=== PATIENT | female | born 1995 | race Caucasian/White ===

== ENCOUNTER 2016-07-14 11:52 | Inpatient (IN) | payer OTHER ==
[2016-07-14] MEDS ORDERED: ONDANSETRON HCL/PF 2 MG/ML VIAL IV PRN ×2 (12:06→20:31)
[2016-07-14] MEDS ORDERED: RINGERS SOLUTION,LACTATED 1,000 ML IV ONE (12:06)
[2016-07-14] MEDS ORDERED: RINGERS SOLUTION,LACTATED 1,000 ML IV PRN (12:06)
[2016-07-14] MEDS ORDERED: OXYTOCIN/DEXTROSE 5%-WATER 500 UNITS/8,333.33 ML BAG IV ONE (12:06)
[2016-07-14] MEDS ORDERED: DEXTROSE 5%-LACTATED RINGERS 1,000 ML IV PRN (12:06)
[2016-07-14] MEDS ORDERED: LIDOCAINE HCL 50 ML VIAL PERI PRN (12:06)
[2016-07-14 12:29] LABS: Hematocrit 36.9 % (37.0-47.0); Hemoglobin 12.3 gm/dL (12.5-16.0); Mean Cell Volume 86.8 fl (78-100); Mean Corpuscular Hemoglobin 28.9 pg (27-31); Mean Corpuscular Hgb Conc 33.3 g/dl (32-36); Mean Platelet Volume 12.2 fl (6.0-9.5); Neutrophil # 9.6 K/mm3 (1.3-6.0); Neutrophil % 79.9 % (42-75.0); Platelet Count 178 K/mm3 (150-450); Red Blood Count 4.25 M/mm3 (4.2-5.4); White Blood Count 12.1 K/mm3 (4.0-10.5)
[2016-07-14 12:51] LABS: Albumin * 2.7 gm/dl (3.4-5.0); Anion Gap 15.1 mmol/L (6.8-13.8); BUN/Creatinine Ratio 12.1 (9.0-21.6); Bilirubin, Total 0.2 mg/dL (0.0-1.1); Ca. Corrected For Albumin 9.3 mg/dL (8.4-10.2); Calcium * 8.6 mg/dL (7.9-10.9); Potassium 4.1 mmol/L (3.4-4.6); Total Protein 6.6 gm/dL (6.2-8.2); Uric Acid 4.7 mg/dL (2.6-7.2)
[2016-07-14] MEDS ORDERED: BUPIVACAINE HCL/0.9 % NACL/PF 250 ML EP PRN (15:27)
[2016-07-14] MEDS ORDERED: fentaNYL CITRATE/PF 50 MCG/ML AMPUL IT SCH (15:30)
--- NOTE | 2016-07-14 15:30 | OR ---
Anesthesia Pre Procedure Eval Date of Service: 07/14/16 Pre Procedure Evaluation: Last Vital Signs Temp 36.9 C 12/07/15 17:54 Pulse Resp BP 113/55 12/07/15 17:54 Pulse Ox Anesthesia Pre Procedure Evaluation DATE: 07/14/2016 TIME: 1530 INDICATIONS: Active labor, labor pain PAST MEDICAL HISTORY: Primipara patient in active labor requesting labor analgesia EXAM: Heart regular; lungs clear ASSESSMENT OF MEDICAL STATUS: Appropriate candidate for labor analgesia PLANNED PROCEDURE: Comminution and spinal epidural for labor analgesia Home Medications: HOME MEDICATIONS Vit No.129/Iron/FA [ One Daily Tablet] 1 each PO DAILY #30 tablet 12/07/15 [Last Taken Unknown] Acetaminophen [Tylenol] 500 mg PO PRN PRN 07/14/16 [Last Taken Unknown]
--- NOTE | 2016-07-14 15:56 | OR ---
Anesthesia Procedure Note - Anesthesia Procedure Note Date of Service: 07/14/16 Narrative: Vital Signs - Last Taken Temp 36.9 C 12/07/15 17:54 Pulse Resp BP 113/55 12/07/15 17:54 Pulse Ox 07/14/16 15:54 ANESTHESIA PROCEDURE NOTE Date of Procedure: 07/14/2016 Time of procedure: 1530. Performed by: HECTOR Hurt CRNA, MSN Financial Underwriter: Sivan Monaco RN. Preprocedure diagnosis: Active labor, labor pain. Post procedure diagnosis: Same. Procedure: Labor Epidural Placement L3 4. Indications: Labor pain. Findings: See below. Details of the procedure: The patient was placed on the side of the bed in sitting position. The patient was prepped with DuraPrep and draped in a sterile fashion. Lidocaine 1% was infiltrated to the skin and subcutaneous tissues at the level of the L3 4 interspace. The epidural space was identified using a 18-gauge Tuohy needle with [id number] technique. Fentanyl 20 g was given intrathecally the intrathecal needle was then removed and the epidural catheter was threaded approximately 4 cm, the epidural needle was then removed, and after careful aspiration 3 mL of 1.5% lidocaine with 1-200,000 epinephrine was injected without change in maternal heart rate or sensorium. The catheter was then taped in place. EBL: Minimal. Fluids: N/A. Specimen: N/A. Post procedure condition: The patient tolerated the procedure well with good relief. No complications were noted. Thank you for this consultation. Pasquale Gillespie CRNA, RN CARDIOLOGY, MSN
[2016-07-14] MEDS ORDERED: GLYCERIN/WITCH HAZEL LEAF 40 APPL BOX TP PRN (20:59)
[2016-07-14] MEDS ORDERED: SENNOSIDES 8.6 MG TABLET PO PRN (20:59)
[2016-07-14] MEDS ORDERED: oxyCODONE HCL/ACETAMINOPHEN 1 TAB TABLET PO PRN (20:59)
[2016-07-14] MEDS ORDERED: BENZOCAINE/MENTHOL 81 SPRAY CAN TP PRN (20:59)
[2016-07-14] MEDS ORDERED: BISACODYL 10 MG SUPP.RECT RC PRN (20:59)
[2016-07-14] MEDS ORDERED: OXYTOCIN/DEXTROSE 5%-WATER 30 UNITS/500 ML BAG IV ONE (20:59)
--- NOTE | 2016-07-14 21:03 | OR ---
Operative Report - Dictated Report Narrative: Spontaneous Vaginal Delivery Viable male with APGARS of 8 at 1 minute and 9 at 5 minutes. He delivered at 2036. Presentation was DOUGLAS. A loose nuchal cord was noted after delivery of his head that was reduced prior to delivery of the shoulders. The left anterior shoulder delivered easily with gentle downward traction followed by the posterior shoulder and the remainder of the baby. The baby placed on the maternal abdomen. He was dried and stimulated. Weight: 6 pounds 12.2 ounces or 3070 g Placenta was delivered spontaneously and intact. Abrasions were noted on the bilateral external labia minora. And first degree laceration noted on the right periurethral area that was hemostatic. Estimated blood loss: 100 ml Mother and baby tolerated delivery well. History for Definition: * The number of deliveries resulting in a live the patient experienced prior to current hospitalization * The previous delivery of live twins or any live multiple gestation is considered one live event. *If primagravida or nulliparous is documented select zero for the number of previous live births. Live Events: 0
[2016-07-14] MEDS: DOCUSATE SODIUM 100 MG CAPSULE PO SCH (22:38)
[2016-07-14] MEDS: IBUPROFEN 800 MG TABLET PO PRN (22:38)
[2016-07-15] MEDS: DOCUSATE SODIUM 100 MG CAPSULE PO SCH ×2 (09:33→20:27)
[2016-07-15] MEDS: IBUPROFEN 800 MG TABLET PO PRN ×2 (09:33→20:27)
--- NOTE | 2016-07-15 09:34 | PN ---
Progess Note - Interim Narrative: 07/15/16 09:32 progress note Subjective: The patient is doing well. She is ambulating, voiding, tolerating by mouth. She has minimal pain and moderate lochia. Denies headache, blurry vision, epigastric pain, edema. Objective: General: No acute distress Abdomen: Soft, nontender, fundus is firm just below the umbilicus Extremities: minimal edema, nontender to palpation Assessment and plan: day 1 Feeding: Breast Pain: Controlled with by mouth medication Gestational hypertension: Blood pressures are mostly within normal limits, continue to monitor Routine care.
[2016-07-16] MEDS: DOCUSATE SODIUM 100 MG CAPSULE PO SCH (10:00)
[2016-07-16] MEDS: oxyCODONE HCL/ACETAMINOPHEN 1 TAB TABLET PO PRN ×2 (10:00→14:18)
[2016-07-16] MEDS: IBUPROFEN 800 MG TABLET PO PRN (10:02)
--- NOTE | 2016-07-16 11:25 | PN ---
Progess Note - Interim Narrative: 07/16/16 11:24 progress note Subjective: The patient is doing well. She is ambulating, voiding, tolerating by mouth. She has minimal pain and moderate lochia. Objective: General: No acute distress Abdomen: Soft, nontender, fundus is firm just below the umbilicus Extremities: minimal edema, nontender to palpation Assessment and plan: day 2 Feeding: Breast Pain: Controlled with by mouth medication control: Depo-Provera Routine care.
[2016-07-16 16:43] VITALS: BP 141/67
== END 2016-07-16 16:30 | disposition home or self-care (01) | DRG 775 ==
LOC: OB 11:52
PROVIDERS: ADMIT Obstetrics & Gynecology Gynecologic Oncology; ATTEND Obstetrics & Gynecology Gynecologic Oncology
PROC: 10E0XZZ Delivery of Products of Conception, External Approach (ICD-10-PCS; principal; 2016-07-14)
PROC: 3E033VJ Introduction of Other Hormone into Peripheral Vein, Percutaneous Approach (ICD-10-PCS; 2016-07-14)
PROC: 4A1HXCZ Monitoring of Products of Conception, Cardiac Rate, External Approach (ICD-10-PCS; 2016-07-14)
PROC: 3E0S3CZ (ICD-10-PCS; 2016-07-14)
DX: O13.4 Gestational [pregnancy-induced] hypertension without significant proteinuria, complicating childbirth (principal); O69.81X0 Labor and delivery complicated by cord around neck, without compression, not applicable or unspecified; O70.0 First degree perineal laceration during delivery; Z3A.39 39 weeks gestation of pregnancy; Z37.0 Single live birth

== ENCOUNTER 2018-11-18 10:51 | Inpatient (IN) ==
[2018-11-18] MEDS ORDERED: DEXTROSE 5%-LACTATED RINGERS 1,000 ML IV PRN (10:57)
[2018-11-18] MEDS ORDERED: OXYTOCIN/DEXTROSE 5%-WATER 30 UNITS/500 ML BAG IV ONE ×2 (10:57→17:34)
[2018-11-18] MEDS ORDERED: RINGER'S SOLUTION,LACTATED 1,000 ML IV ONE (10:57)
[2018-11-18] MEDS ORDERED: ONDANSETRON 4 MG TAB.RAPDIS PO PRN (10:57)
[2018-11-18 11:47] LABS: Hematocrit 31.8 % (37.0-47.0); Hemoglobin 9.9 gm/dL (12.5-16.0); Mean Cell Volume 78.5 fl (78-100); Mean Corpuscular Hemoglobin 24.4 pg (27-31); Mean Corpuscular Hgb Conc 31.1 g/dl (32-36); Mean Platelet Volume 11.1 fl (8-12.5); Neutrophil # 10.5 K/mm3 (1.3-6.0); Neutrophil % 77.9 % (42-75.0); Platelet Count 215 K/mm3 (150-450); Red Blood Count 4.05 M/mm3 (4.2-5.4); Red Cell Distribution Width 14.6 % (11.5-14.0); White Blood Count 13.5 K/mm3 (4.0-10.5)
[2018-11-18 12:15] LABS: Albumin * 2.8 gm/dl (3.4-5.0); Anion Gap 13.5 mmol/L (6.8-13.8); BUN/Creatinine Ratio 8.5 (9.0-21.6); Bilirubin, Total 0.3 mg/dL (0.0-1.1); Ca. Corrected For Albumin 9.3 mg/dL (8.4-10.2); Calcium * 8.7 mg/dL (7.9-10.9); Carbon Dioxide 22.3 mmol/L (24-32.6); Potassium 3.8 mmol/L (3.4-4.6); Total Protein 6.3 gm/dL (6.2-8.2)
[2018-11-18] MEDS ORDERED: ONDANSETRON HCL/PF 2 MG/ML VIAL IV PRN (13:20)
[2018-11-18] MEDS ORDERED: BUPIVACAINE HCL/0.9 % NACL/PF 250 ML EP PRN (13:20)
[2018-11-18] MEDS ORDERED: NALOXONE HCL 1 MG/1 ML SYRG IV PRN (13:20)
[2018-11-18] MEDS ORDERED: fentaNYL CITRATE/PF 50 MCG/ML AMPUL IT SCH (13:30)
--- NOTE | 2018-11-18 14:11 | ANES ---
Anesthesia Pre Procedure Eval Vitals/Labs: Last Vital Signs Temp 36.8 C 11/18/18 11:13 Pulse 98 11/18/18 11:13 Resp 16 11/18/18 11:13 BP 123/77 11/18/18 11:13 Pulse Ox 99 11/18/18 11:13 HOME MEDICATIONS NK 11/18/18 [Last Taken Unknown] Allergies/Adverse Reactions: Allergies Allergy/AdvReac Type Severity Reaction Status Date / Time No Known Allergies Allergy Verified 11/18/18 11:05 - Planned Procedure Planned Procedure: INDUCTION FOR PREECALAMPSIA Medication List Reviewed:: Yes Allergies Verified: Yes Medical History (Updated 11/15/18 @ 17:03 by John Pelayo DO) ASCUS with positive high risk HPV (Acute) 2015, no pap in 2016. 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 Wrist fracture Onset Date: 2002 Left Surgical History (Updated 08/26/18 @ 15:06 by Marcela Lopez MD) H/O removal of cyst Onset Date: Unknown Right rodarte History of tonsillectomy and adenoidectomy Onset Date: 1998 Hx of dilation and curettage Onset Date: 04/2015 Removal of Hydatidiform mole Family History (Updated 04/23/18 @ 10:24 by Marilia Pérez RN) Mother Hypertension Depression Father Depression Hypertension Diabetes Hyperlipemia GERD (gastroesophageal reflux disease) Back problem Grandfather Hypertension Diabetes Myocardial infarction Hyperlipemia CVA (cerebral vascular accident) Maternal Cancer Lymphoma Grandfather Heart disease Paternal Grandmother Coronary artery disease Maternal Grandmother Diabetes Paternal - Family Anesthesia History Family History:: no untoward family reactions to anesthesia - Airway/Neck/Teeth Within Normal Limits:: Yes Denture Type: None Neck Exam: full range of motion Thyromental (T-M) distance: > 6 cm Mandibulo Hyoid distance: > 3 cm - Respiratory Smoking Status: Never smoker Sleep Apnea currently treated: No Sleep Apnea by current assessment: No - Cardiovascular Tolerate Activity: Good - Anesthesia Assessment and Plan ASA Class: PS, II, E Anesthesia Type Plan: Epidural Planned difficult intubation/equipment available: No
--- NOTE | 2018-11-18 14:12 | ANES ---
Post Anesthesia Assessment - Vital Signs Vitals: Last Vital Signs Temp 36.8 C 11/18/18 11:13 Pulse 98 11/18/18 11:13 Resp 16 11/18/18 11:13 BP 123/77 11/18/18 11:13 Pulse Ox 99 11/18/18 11:13 Airway Patency: Normal - Mental Status Level Of Consciousness: Awake - Pain Level Pain Score: 2 - N/V Assessment Nausea/Vomiting Presence: None Dehydration:: No
--- NOTE | 2018-11-18 14:12 | ANES ---
Post Anesthesia Discharge - Transfer of Care Transfer of Care handoff given to nurse: Yes - Anesthesia Post Op Note Anesthesia Post Op Note: Care transferred to OB RN
--- NOTE | 2018-11-18 14:14 | ANES ---
Anesthesia Procedure Note Procedure Note: ANESTHESIA PROCEDURE NOTE Date of Procedure: 11/18/2018 Time of procedure: 1330. Performed by: Abiodun Vu CRNA Customer Care Voice Consultant: None. Preprocedure diagnosis: Active labor. Post procedure diagnosis: Same. Procedure: Insertion of labor epidural. Indications: The patient is a 23-year-old multigravida female in active labor requesting labor epidural for pain management. Findings: See below. Details of the procedure: The patient was placed in a sitting position. Back was prepped with DuraPrep. Patient was then draped in a sterile fashion. Lidocaine 1% was infiltrated to the skin and subcutaneous tissues at the level of the L3 4 interspace. The epidural space was identified using a 18-gauge Tuohy needle with [id number] technique. 20 mcg fentanyl was given intrathecally using a 27 ga. spinal needle. Epidural catheter was inserted without difficulty. Negative test dose was elicited using 3 mL of 2% preservative-free lidocaine plus epinephrine 1 200,000. The epidural catheter was then taped and secured in place. EBL: Minimal. Fluids: N/A. Specimen: N/A. Post procedure condition: The patient tolerated the procedure well. No complications were noted. Thank you for this consultation. Blair CRNA
[2018-11-18 14:32] LABS: Cocaine Ur Negative (NEGATIVE); Urine Barbiturate Negative (NEGATIVE); Urine Benzodiazepines Negative (NEGATIVE); Urine Opiates Negative (NEGATIVE); Urine PCP Negative (NEGATIVE); Urine THC Negative (NEGATIVE)
--- NOTE | 2018-11-18 16:36 | HP ---
Chief Complaint - Chief Complaint Date of Service: 11/18/18 Time of Service: 16:25 Chief Complaint: preeclampsia History of Present Illness: 23 yo at 38 3/7 wks presents to L&D for induction of labor due to mild preeclampsia. BPs in office 120-150s/90's on last week and today. Patient denies headache, visual changes, epigastric pain, or excess edema. This complicated by anemia, mild preeclampsia, h/o GHTN, h/o molar . Rh negative Rubellla immune GBS negative Medical History (Updated 11/15/18 @ 17:03 by John Pelayo DO) ASCUS with positive high risk HPV (Acute) 2015, no pap in 2016. 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 Wrist fracture Onset Date: 2002 Left Surgical History: Surgical History (Updated 08/26/18 @ 15:06 by Marcela Lopez MD) H/O removal of cyst Onset Date: Unknown Right rodarte History of tonsillectomy and adenoidectomy Onset Date: 1998 Hx of dilation and curettage Onset Date: 04/2015 Removal of Hydatidiform mole Family History: Family History (Updated 04/23/18 @ 10:24 by Marilia Pérez RN) Mother Hypertension Depression Father Depression Hypertension Diabetes Hyperlipemia GERD (gastroesophageal reflux disease) Back problem Grandfather Hypertension Diabetes Myocardial infarction Hyperlipemia CVA (cerebral vascular accident) Maternal Cancer Lymphoma Grandfather Heart disease Paternal Grandmother Coronary artery disease Maternal Grandmother Diabetes Paternal Social History: Preferred Language Hungarian Smoking Status Never smoker Psych History No pertinent hx (Last Updated 11/06/18 @ 11:06 by DAVID Yoder) No Social History Section defined Review Of Systems (GEN) - Review of Systems Generalized/Overall Review: Present: No Symptoms Reported EENTM: Present: No Symptoms Reported Respiratory: Present: No Symptoms Reported Cardiac: Present: No Symptoms Reported Abdominal: Present: No Symptoms Reported Genitourinary: Present: No Symptoms Reported Musculoskeletal: Present: No Symptoms Reported Neurological: Present: No Symptoms Reported Skin: Present: No Symptoms Reported Endocrine: Present: No Symptoms Reported Immunizations: IMMUNIZATION HX History of Influenza Vaccine Yes Allergies/Adverse Reactions: Allergies Allergy/AdvReac Type Severity Reaction Status Date / Time No Known Allergies Allergy Verified 11/18/18 11:05 Home Medications: HOME MEDICATIONS NK 11/18/18 [Last Taken Unknown] Exam - Exam Vital Signs: Vital Signs - Last Taken Temp 36.8 C 11/18/18 11:13 Pulse 98 11/18/18 11:13 Resp 16 11/18/18 11:13 BP 123/77 11/18/18 11:13 Pulse Ox 99 11/18/18 11:13 Constitutional: Present: Alert, Oriented x3, Cooperative, No distress ENT Exam: Present: hearing grossly normal Respiratory: Present: lungs clear, no respiratory distress Cardiovascular/Chest: Present: normal peripheral pulses, regular rate, rhythm, no edema Abdomen: Present: soft, nontender, no rebound tenderness, other - gravid /Rectal: Present: Other - 4/80/-2 Extremity: Present: non-tender, no calf tenderness, lower extremity edema - 1+ Skin Exam: Present: normal color, warm/dry, no cyanosis Neurologic: Present: alert, normal mood/affect, oriented x 3, other - DTR 2/4 bilaterally with no clonus Appearance: Present: appropriate appearance, appropriate insight Eye contact: Present: cooperative, good eye contact, normal speech Thoughts: Present: normal thought pattern Diagnostic Studies: Abnormal Lab Results 11/18/18 11/18/18 Range/Units 11:42 11:42 WBC 13.5 H (4.0-10.5) K/mm3 RBC 4.05 L (4.2-5.4) M/mm3 Hgb 9.9 L (12.5-16.0) gm/dL Hct 31.8 L (37.0-47.0) % MCH 24.4 L (27-31) pg MCHC 31.1 L (32-36) g/dl RDW 14.6 H (11.5-14.0) % Immature Gran % (Auto) 0.50 H (0.001-0.429) % Immature Gran # (Auto) 0.07 H (0.000-0.0310) K/mm3 Neutrophils % 77.9 H (42-75.0) % Lymphocytes % 16.0 L (20-51) % Neutrophils # 10.5 H (1.3-6.0) K/mm3 Carbon Dioxide 22.3 L (24-32.6) mmol/L Est GFR (Non-Af Amer) 133 H (60-130) mL/min BUN/Creatinine Ratio 8.5 L (9.0-21.6) ALT 17 L (19-67) U/L Albumin 2.8 L (3.4-5.0) gm/dl Laboratory Results WBC 13.5 K/mm3 (4.0-10.5) H 11/18/18 11:42 RBC 4.05 M/mm3 (4.2-5.4) L 11/18/18 11:42 Hgb 9.9 gm/dL (12.5-16.0) L 11/18/18 11:42 Hct 31.8 % (37.0-47.0) L 11/18/18 11:42 MCV 78.5 fl (78-100) 11/18/18 11:42 MCH 24.4 pg (27-31) L 11/18/18 11:42 MCHC 31.1 g/dl (32-36) L 11/18/18 11:42 RDW 14.6 % (11.5-14.0) H 11/18/18 11:42 Plt Count 215 K/mm3 (150-450) 11/18/18 11:42 MPV 11.1 fl (8-12.5) 11/18/18 11:42 Immature Gran % (Auto) 0.50 % (0.001-0.429) H 11/18/18 11:42 Immature Gran # (Auto) 0.07 K/mm3 (0.000-0.0310) H 11/18/18 11:42 77.9 % (42-75.0) H 11/18/18 11:42 16.0 % (20-51) L 11/18/18 11:42 5.3 % (0.0-9) 11/18/18 11:42 0.1 % (0.0-3.0) 11/18/18 11:42 0.2 % (0.0-1.0) 11/18/18 11:42 Nucleated RBC % 0.0 k/mm3 (0-1) 11/18/18 11:42 10.5 K/mm3 (1.3-6.0) H 11/18/18 11:42 2.16 k/mm3 (1.5-3.5) 11/18/18 11:42 0.7 k/mm3 (0.0-1.0) 11/18/18 11:42 0.0 k/mm3 (0.0-0.7) 11/18/18 11:42 Absolute Basophils 0.0 k/mm3 (0.0-0.1) 11/18/18 11:42 Sodium 135 mmol/L (132-142) 11/18/18 11:42 135 mmol/L (130-142) 11/18/18 11:42 Potassium 3.8 mmol/L (3.4-4.6) 11/18/18 11:42 Chloride 103 mmol/L (97-106) 11/18/18 11:42 Carbon Dioxide 22.3 mmol/L (24-32.6) L 11/18/18 11:42 13.5 mmol/L (6.8-13.8) 11/18/18 11:42 BUN 5 mg/dL (3-23) 11/18/18 11:42 0.59 mg/dL (0.4-1.4) 11/18/18 11:42 Est GFR (Non-Af Amer) 133 mL/min (60-130) H 11/18/18 11:42 8.5 (9.0-21.6) L 11/18/18 11:42 78 mg/dL (70-110) 11/18/18 11:42 Calcium 8.7 mg/dL (7.9-10.9) 11/18/18 11:42 Calcium Adj for Albumin 9.3 mg/dL (8.4-10.2) 11/18/18 11:42 0.3 mg/dL (0.0-1.1) 11/18/18 11:42 AST 17 U/L (0-48) 11/18/18 11:42 ALT 17 U/L (19-67) L 11/18/18 11:42 157 U/L (50-170) 11/18/18 11:42 6.3 gm/dL (6.2-8.2) 11/18/18 11:42 2.8 gm/dl (3.4-5.0) L 11/18/18 11:42 Negative (NEGATIVE) 11/18/18 13:58 Negative (NEGATIVE) 11/18/18 13:58 Ur Phencyclidine Scrn Negative (NEGATIVE) 11/18/18 13:58 Urine Amphetamine Negative (NEGATIVE) 11/18/18 13:58 U Benzodiazepines Scrn Negative (NEGATIVE) 11/18/18 13:58 Negative (NEGATIVE) 11/18/18 13:58 Negative (NEGATIVE) 11/18/18 13:58 Assessment/Plan - Assessment/Plan (1) Preeclampsia Assessment: Induction of labor. Epidural PRN. Seizure precautions. Problem: Acute Qualifiers: Trimester: third trimester Qualified Code(s): O14.93 - Unspecified pre- eclampsia, third trimester (2) Anemia Problem: Acute Qualifiers: Anemia type: iron deficiency Iron deficiency anemia type: inadequate dietary iron intake Qualified Code(s): D50.8 - Other iron deficiency anemias (3) History of molar Problem: Resolved (4) History of gestational hypertension Problem: Chronic
[2018-11-18] MEDS ORDERED: BENZOCAINE/MENTHOL 81 SPRAY CAN TP PRN (17:34)
[2018-11-18] MEDS ORDERED: GLYCERIN/WITCH HAZEL LEAF 40 APPL BOX TP PRN (17:34)
[2018-11-18] MEDS ORDERED: HYDROCORTISONE 30 APPL TUBE TP PRN (17:34)
[2018-11-18] MEDS ORDERED: BISACODYL 10 MG SUPP.RECT RC PRN (17:34)
[2018-11-18] MEDS ORDERED: oxyCODONE HCL/ACETAMINOPHEN 1 TAB TABLET PO PRN (17:34)
[2018-11-18] MEDS ORDERED: SENNOSIDES 8.6 MG TABLET PO PRN (17:34)
--- NOTE | 2018-11-18 17:37 | OR ---
Operative Report - Dictated Report Narrative: Spontaneous vaginal delivery of vigorously crying viable female at 1715 on 11/18/2018 with Apgars 9 and 9, weighing 3643 g in HERBERT position. Cord clamping delayed approximately 1 minute Placenta delivered complete, intact, with three vessel cord Estimated blood loss: less than 50 ml Anesthesia: epidural Lacerations: None History for MU Definition: * The number of deliveries resulting in a live the patient experienced prior to current hospitalization * The previous delivery of live twins or any live multiple gestation is considered one live event. *If primagravida or nulliparous is documented select zero for the number of previous live births. Live Events: 1
[2018-11-18] MEDS: IBUPROFEN 800 MG TABLET PO PRN (19:40)
[2018-11-18] MEDS: oxyCODONE HCL/ACETAMINOPHEN 1 TAB TABLET PO PRN ×2 (19:40→22:55)
[2018-11-18] MEDS: DOCUSATE SODIUM 100 MG CAPSULE PO SCH (20:19)
[2018-11-19] MEDS: oxyCODONE HCL/ACETAMINOPHEN 1 TAB TABLET PO PRN ×5 (02:44→23:32)
[2018-11-19] MEDS: IBUPROFEN 800 MG TABLET PO PRN ×3 (02:44→19:57)
[2018-11-19] MEDS: DOCUSATE SODIUM 100 MG CAPSULE PO SCH ×2 (08:05→21:35)
--- NOTE | 2018-11-19 11:41 | PN ---
Subjective - Date and Time Seen Date: 11/19/18 Time: 08:55 Objective - Vitals Vitals: Last Vital Signs Temp 36 C 11/19/18 08:09 Pulse 90 11/19/18 08:09 Resp 16 11/19/18 08:09 BP 114/62 11/19/18 08:09 Pulse Ox 100 11/19/18 08:09 Patient denies complaints. Breast-feeding without difficulty Lochia wnl Abdomen - soft, nontender Uterus - firm, at umbilicus - 1 No calf tenderness Impression: day #1 - s/p spontaneous vaginal delivery. Mild preeclampsia-resolved Plan: Continue routine care - Abnormal Lab Findings Abnormal Lab Findings: Abnormal Lab Results 11/18/18 11/18/18 Range/Units 11:42 11:42 WBC 13.5 H (4.0-10.5) K/mm3 RBC 4.05 L (4.2-5.4) M/mm3 Hgb 9.9 L (12.5-16.0) gm/dL Hct 31.8 L (37.0-47.0) % MCH 24.4 L (27-31) pg MCHC 31.1 L (32-36) g/dl RDW 14.6 H (11.5-14.0) % Immature Gran % (Auto) 0.50 H (0.001-0.429) % Immature Gran # (Auto) 0.07 H (0.000-0.0310) K/mm3 Neutrophils % 77.9 H (42-75.0) % Lymphocytes % 16.0 L (20-51) % Neutrophils # 10.5 H (1.3-6.0) K/mm3 Carbon Dioxide 22.3 L (24-32.6) mmol/L Est GFR (Non-Af Amer) 133 H (60-130) mL/min BUN/Creatinine Ratio 8.5 L (9.0-21.6) ALT 17 L (19-67) U/L Albumin 2.8 L (3.4-5.0) gm/dl Cauti Physician Documentation - Urinary Catheter Management Urethral (Farmer) Date of Insertion: 11/18/18 Time of Insertion: 13:59 Date of Removal: 11/18/18 Time of Removal: 17:08 Assessment/Plan - Problems/Diagnosis (1) Preeclampsia Problem: Acute Qualifiers: Trimester: third trimester Qualified Code(s): O14.93 - Unspecified pre- eclampsia, third trimester (2) Anemia Problem: Acute Qualifiers: Anemia type: iron deficiency Iron deficiency anemia type: inadequate diet marika iron intake Qualified Code(s): D50.8 - Other iron deficiency anemias (3) History of molar Problem: Resolved (4) History of gestational hypertension Problem: Chronic
[2018-11-20] MEDS: IBUPROFEN 800 MG TABLET PO PRN ×2 (01:41→09:28)
[2018-11-20] MEDS: DOCUSATE SODIUM 100 MG CAPSULE PO SCH (09:28)
[2018-11-20] MEDS: oxyCODONE HCL/ACETAMINOPHEN 1 TAB TABLET PO PRN (09:29)
--- NOTE | 2018-11-20 10:19 | PN ---
Subjective - Date and Time Seen Date: 11/20/18 Time: 10:19 Objective - Vitals Vitals: Last Vital Signs Temp 36.0 C 11/19/18 23:30 Pulse 107 H 11/19/18 23:30 Resp 16 11/19/18 23:30 BP 130/64 11/19/18 23:30 Pulse Ox 98 11/19/18 23:30 Patient denies complaints. Lochia wnl Abdomen - soft, nontender Uterus - firm, at umbilicus - 2 No calf tenderness Impression: day #2 - s/p spontaneous vaginal delivery. Plan: Routine discharge instructions Cauti Physician Documentation - Urinary Catheter Management Urethral (Farmer) Date of Insertion: 11/18/18 Time of Insertion: 13:59 Date of Removal: 11/18/18 Time of Removal: 17:08 Assessment/Plan - Problems/Diagnosis (1) Preeclampsia Problem: Acute Qualifiers: Trimester: third trimester Qualified Code(s): O14.93 - Unspecified pre- eclampsia, third trimester (2) Anemia Problem: Acute Qualifiers: Anemia type: iron deficiency Iron deficiency anemia type: inadequate dietary iron intake Qualified Code(s): D50.8 - Other iron deficiency anemias (3) History of molar Problem: Resolved (4) History of gestational hypertension Problem: Chronic
[2018-11-20 11:01] VITALS: BP 124/65
== END 2018-11-20 10:55 | disposition home or self-care (01) | DRG 806 ==
LOC: OB 10:51
PROVIDERS: ADMIT Obstetrics & Gynecology; ATTEND Obstetrics & Gynecology
CPT/HCPCS: 36415; 59025; 80053; 80307; 85025; 88307